=== PATIENT | male | born 1985 | race Asian ===

== ENCOUNTER 2025-07-05 10:26 | Observation (INO) ==
--- NOTE | 2025-07-05 11:07 | ED Physician Documentation ---
History of Present Illness Stated complaint Stated Complaint: SOA, ELEVATED HR Chief complaint Chief Complaint: Cardiac History obtained from History obtained from: Patient Additonal information Additional information: 40-year-old gentleman with history of childhood asthma does smoke cigarettes presents referred in from the walk-in clinic for evaluation of shortness of breath and elevated heart rate. Has been going on for about 3 days. He gets dizzy when he stands up too fast and feels like his heart rate is elevated. There is no chest pain with it. No recent travel. When queried about leg symptoms he did recently have pain at the top of the right foot and left ankle without trauma that is better now. There is no cough. Meds/Allgy Home Medications Ambulatory Orders Medication Instructions Recorded Confirmed diphenhydramine HCl 25 mg capsule 25 mg PO TID PRN all ergic reaction 04/24/25 07/05/25 (Benadryl) naproxen sodium 220 mg capsule 220 mg PO BID PRN pain 04/24/25 07/05/25 Allergies Allergies Allergy/AdvReac Type Severity Reaction Status Date / Time No Known Drug Allergies Allergy Verified 07/05/25 11:00 PFSH Active Problems All Active Problems (Updated 07/05/25 @ 11:39 by Bismark Reyes MD) Dyspnea (Acute) Profound anemia (Chronic) Tachycardia (Acute) Social History Social History (Updated 04/24/25 @ 08:08 by Domingo Acharya) Smoking Status: Current every day smoker Do you feel safe in your home environment?: Yes History of physical, verbal, emotional, or financial abuse?: No Exam Exam Vital Signs: Vital Signs x48h Temp Pulse Pulse Resp BP BP BP 07/05/25 14:05 37.3 C 102 H 18 121/69 07/05/25 13:18 103 H 152/72 H 07/05/25 11:31 90 18 07/05/25 11:04 103 H 163/107 H 07/05/25 11:02 163/76 H 07/05/25 10:56 36.7 C 104 H 22 163/76 H Pulse Ox 07/05/25 14:05 100 07/05/25 13:18 98 07/05/25 11:31 07/05/25 11:04 100 07/05/25 11:02 07/05/25 10:56 100 Constitutional normal general appearance and no apparent distress HENMT oropharynx normal Eyes PERRL Respiratory breath sounds equal bilaterally Mild expiratory wheezes, nonlabored Cardiovascular normal heart rate noted, regular rhythm noted, no rub and no murmur Gastrointestinal abdomen soft to palpation and nontender to palpation Extremities No pedal edema or calf tenderness. Neurology GCS 15 Results Vitals Vitals: Vital Signs - 24 hr 07/05/25 10:56 07/05/25 11:02 07/05/25 11:04 Temperature 36.7 C Temperature Source Temporal Artery Scan Pulse Rate 104 H 103 H Pulse Rate [Monitoring electrodes] Respiratory Rate 22 Blood Pressure 163/76 H 163/107 H Blood Pressure [Left Brachial artery] Blood Pressure [Left] 163/76 H O2 Saturation 100 100 O2 Source Room air Room air Sedation scale Pain Intensity 0 07/05/25 11:31 07/05/25 13:18 07/05/25 14:05 Temperature 37.3 C Temperature Source Temporal Artery Scan Pulse Rate 90 103 H Pulse Rate [Monitoring electrodes] 102 H Respiratory Rate 18 18 Blood Pressure 152/72 H Blood Pressure [Left Brachial artery] 121/69 Blood Pressure [Left] O2 Saturation 98 100 O2 Source Room air Room air Sedation scale 0-Fully awake Pain Intensity 0 Oxygen O2 Source Room air EKG (time done) 1110: EKG releavant findings:: EKG personally interpreted by author of this note. Relevant findings are: Normal sinus rhythm with rate of 90, short PA interval, early R wave transition. No clear ischemic findings. Labs Labs: Laboratory Tests 07/05/25 07/05/25 07/05/25 11:10 11:10 11:10 WBC 4.4 L RBC 2.68 L Hgb 4.4 L* Hct 18.5 L* MCV 69.0 L MCH 16.4 L MCHC 23.8 L RDW 18.6 H Plt Count 347 MPV 10.2 Neut # (Auto) 2.6 Lymph # (Auto) 1.2 L Hanson # (Auto) 0.5 Eos # (Auto) 0.1 Baso # (Auto) 0.0 Absolute Nucleated RBC 0.07 Nucleated RBC % 1.6 Manual Slide Review Indicated WBC Morphology NORMAL APPEARANCE Platelet Estimate NORMAL (130-450,000) Platelet Morphology NORMAL APPEARANCE RBC Morph Micro Appear 4+ ANISOCYTOSIS 4+ POIKILOCYTOSIS 3+ POLYCHROMASIA D-Dimer Sodium Potassium Chloride Carbon Dioxide Anion Gap BUN Creatinine Estimated GFR (MDRD) Glucose Calcium Iron TIBC % Saturation Transferrin Total Bilirubin AST ALT Alkaline Phosphatase Troponin I High Sens Total Protein Albumin Globulin Albumin/Globulin Ratio Lipase Slides for Path Review Blood Type Blood Type Recheck Antibody Screen GINA, IgG Specific GINA, Polyspecific GINA, C3d Specific Crossmatch IS Only 07/05/25 07/05/25 07/05/25 11:10 11:10 11:43 WBC RBC Hgb Hct MCV MCH MCHC RDW Plt Count MPV Neut # (Auto) Lymph # (Auto) Hanson # (Auto) Eos # (Auto) Baso # (Auto) Absolute Nucleated RBC Nucleated RBC % Manual Slide Review WBC Morphology Platelet Estimate Platelet Morphology RBC Morph Micro Appear 1+ SCHISTOCYTES 1+ TEARDROP CELLS D-Dimer 205.3 Sodium 138 Potassium 3.8 Chloride 107 Carbon Dioxide 23 Anion Gap 8.0 BUN 11 Creatinine 1.0 Estimated GFR (MDRD) 84 L Glucose 108 H Calcium 8.6 Iron 14 L TIBC 595 H % Saturation 2 L Transferrin 425 H Total Bilirubin 0.5 AST 13 ALT 12 Alkaline Phosphatase 48 Troponin I High Sens 3.4 Total Protein 6.4 Albumin 4.1 Globulin 2.3 Albumin/Globulin Ratio 1.8 Lipase 25 Slides for Path Review Indicated Blood Type Blood Type Recheck O POSITIVE Antibody Screen GINA, IgG Specific GINA, Polyspecific GINA, C3d Specific Crossmatch IS Only 07/05/25 12:10 WBC RBC Hgb Hct MCV MCH MCHC RDW Plt Count MPV Neut # (Auto) Lymph # (Auto) Hanson # (Auto) Eos # (Auto) Baso # (Auto) Absolute Nucleated RBC Nucleated RBC % Manual Slide Review WBC Morphology Platelet Estimate Platelet Morphology RBC Morph Micro Appear D-Dimer Sodium Potassium Chloride Carbon Dioxide Anion Gap BUN Creatinine Estimated GFR (MDRD) Glucose Calcium Iron TIBC % Saturation Transferrin Total Bilirubin AST ALT Alkaline Phosphatase Troponin I High Sens Total Protein Albumin Globulin Albumin/Globulin Ratio Lipase Slides for Path Review Blood Type O POSITIVE Blood Type Recheck Antibody Screen NEGATIVE GINA, IgG Specific Not Reportable GINA, Polyspecific NEGATIVE GINA, C3d Specific Not Reportable Crossmatch IS Only See Detail PD Medical Decision Making ED course ED course: 32-year-old gentleman presents with shortness of breath and dizziness. There is no chest pain. He was tachycardic in the clinic but that seems to resolve on arrival here.. He was sent in from the clinic for workup. He had a trace of a wheeze so I did trial albuterol which was unhelpful. Subsequently labs came back with profound anemia. No priors available for comparison. He states that he had ongoing rectal bleeding for a year and bleeds about every other day. He is never had a workup on this. No dark or tarry stools. His mother at the bedside also notes that she has a history of profound iron deficiency anemia and has required transfusions in the past. He was crossmatched for 3 units of blood anticipate at least 2 and likely 3 unit need to given his size. Iron studies suggest significant iron deficiency anemia and this is likely due to his chronic GI bleed. There was a delay to admission as no beds were available until staffing was better on the floor and I spoke with Dr. Roy for admission at 2:10 PM. She requested I have a surgical consult and I spoke with Dr. Gomes. Note that OR is not open this weekend, but given that he has had ongoing bleeding for a year there is probably no urgency to the colonoscopy and she deferred to medicine on the decision to admit and Dr. Dmitri Hook was agreeable. Discharge Plan Discharge Patient Disposition: ED Place in Observation Condition: Fair Clinical Impression: Profound anemia, Dyspnea Prescriptions: No Action diphenhydramine HCl [Benadryl] 25 mg capsule 25 mg PO TID PRN (Reason: allergic reaction) naproxen sodium 220 mg capsule 220 mg PO BID PRN (Reason: pain) Print Language: Marshallese Stand Alone Forms: PCP List
--- NOTE | 2025-07-05 11:19 | XRAY Report ---
PROCEDURE: XR Chest 1V INDICATIONS: Chest pain TECHNIQUE: One view of the chest was acquired. COMPARISON: None. FINDINGS: Surgical changes and devices: None. Lungs and pleura: No pleural effusions or pneumothorax. No consolidation. Mediastinum: Mediastinal contours appear normal. Heart size is normal. Bones and chest wall: No suspicious bony lesions. Overlying soft tissues appear unremarkable. IMPRESSION: No acute cardiopulmonary process. Reviewed by: Camryn Horowitz MD on 07/05/2025 11:16 AM [facility] Approved by: Camryn Horowitz MD on 07/05/2025 11:16 AM [facility] Station ID: [id number]
[2025-07-05 11:20] LABS: MEAN PLATELET VOLUME 10.2 fL (7.4-11.4); NRBC ABSOLUTE COUNT (AUTO) 0.07 x10^3/uL; NUCLEATED RED BLOOD CELLS AUTO 1.6 /100WBC; PLT - PLATELET COUNT 347 10^3/uL (130-450); RED CELL DISTRIBUTION WIDTH 18.6 % (12.0-15.0)
[2025-07-05] MEDS: ALBUTEROL NEB 2.5 MG/3 ML INH STA (11:25)
[2025-07-05 11:30] LABS: HCT - HEMATOCRIT 18.5 % (42.0-52.0); HGB - HEMOGLOBIN 4.4 g/dL (14.0-18.0); SLIDE REVIEW? Indicated
[2025-07-05 11:33] LABS: ALT ALANINE AMINOTRANSFERASE 12.0 IU/L (10-60); AST ASPARTATE AMINOTRANSFERASE 13.0 IU/L (10-42); BUN - BLOOD UREA NITROGEN 11.0 mg/dL (6-20); CARBON DIOXIDE - CO2 23.0 mmol/L (21-32); CREATININE 1.0 mg/dL (0.6-1.3); GFR - MDRD 84.0 (>89)
[2025-07-05 11:38] LABS: TROPONIN I HIGH SENSITIVITY 3.4 ng/L (2.3-19.7)
[2025-07-05 12:14] LABS: PLATELET ESTIMATE, MANUAL NORMAL (130-450,000) (NORMAL); PLATELET MORPHOLOGY NORMAL APPEARANCE (NORMAL); SLIDE SENT FOR PATH REVIEW? Indicated
[2025-07-05 12:15] LABS: WBC MORPHOLOGY (MULTIPLE) NORMAL APPEARANCE (NORMAL)
[2025-07-05] MEDS: SODIUM CHLORIDE 0.9% 1,000 ML IV STA (12:15)
[2025-07-05 12:47] LABS: % IRON SATURATION 2 % (20-50)
--- NOTE | 2025-07-05 14:13 | HISTORY & PHYSICAL EXAMINATION ---
Chief Complaint Chief Complaint Chief Complaint: Dyspnea, weakness, tachycardia, fatigue, anemia, BRBPR CPT Codes:: 15432 History of Present Illness History Obtained From Records Reviewed: ED History obtained from: ED, patient at bedside Exam Limitations: None History of Present Illness HPI Comment/Other: Pt is a 40yoM with ~1 yr of minor BRBPR and ongoing symptoms for ~3 days of dyspnea with activity, weakness, fatigue, and feeling "unmotivated". He was seen at the walk-in clinic and was sent to the ER. He had an episode of BRBPR some 10 years ago and had received a colonoscopy at that time, which apparently proved inconclusive for bleeding source or discrete pathology. Given the lack of definitive diagnosis at that time, pt assumed this ongoing bleeding was likewise going to prove inconclusive if he sought treatment, and [place]. He relates he may be pre-diabetic and that he has recently tried to start eating better and cutting out extraneous sugar, but does obtain blood sugars and has not had an A1C that he knows of. He denies any recent illness, international travel, new foods, or other precipitating events, but does relate that some illnesses do run in the family, including a nonspecific colon cancer hx in a family member. Will clarify degree of relation. Other FH includes diabetes in uncles and father, heart disease in grandparent, lung cancer in a maternal great grandmother, and iron deficiency anemia from uterine fibroid bleeding which was corrected with transfusion. Pt does relate he had had a "hives" reaction within the last 2 weeks, and another some months ago that did not return after he changed detergents. Pt has a long smoking history and has been working in [employer] for some years now. He does relate some near syncopal events, but has not experienced true syncope. Pt denies any chest pain, respiratory distress at rest, nausea/vomiting, syncope, NAVA, fever, chills/rigor, dysuria, hematuria. Meds/Allgy Home Medications Ambulatory Orders Medication Instructions Recorded Confirmed diphenhydramine HCl 25 mg capsule 25 mg PO TID PRN all ergic reaction 04/24/25 07/05/25 (Benadryl) naproxen sodium 220 mg capsule 220 mg PO BID PRN pain 04/24/25 07/05/25 Allergies Allergies Allergy/AdvReac Type Severity Reaction Status Date / Time No Known Drug Allergies Allergy Verified 07/05/25 11:00 PFSH Active Problems All Active Problems (Updated 07/05/25 @ 15:39 by Twin Delaney) BRBPR (bright red blood per rectum) (Acute) Asthma (Chronic) Dyspnea (Acute) Profound anemia (Chronic) Tachycardia (Acute) Social History Social History (Updated 04/24/25 @ 08:08 by Domingo Acharya) Smoking Status: Current every day smoker Do you feel safe in your home environment?: Yes History of physical, verbal, emotional, or financial abuse?: No POLST Patient has POLST: No POLST CPR Status: Attempt Resuscitation (CPR) Level of Medical Intervention: Full Treatment Review of Systems As above. Constitutional Reports: Fatigue and Weakness Eyes Reports: Blurry vision Cardiovascular Reports: shortness of breath with exertion and Decreased exercise tolerance; Denies: Irregular heart rate, chest pain or palpitations Respiratory Reports: Shortness of breath and SOB with exertion Gastrointestinal Reports: Rectal bleeding; Denies: Abdominal pain, Abdominal distention, Vomiting, René blood emesis, Coffee grounds in vomit, Diarrhea or Constipation Genitourinary Denies: Painful urination or Flank pain Neurological Reports: General weakness Endocrine Reports: Fatigue Hematologic/Lymphatic Reports: Anemia Allergic/Immunologic Reports: Hives Prior Level of Functionality: Pt was able to go to the gym several times per week prior to these more acute symptoms, and was able to tolerate exercise at baseline. Exam Exam Vital Signs: Vital Signs x48h Temp Pulse Pulse Resp BP BP BP 07/05/25 15:39 36.6 C 95 18 109/66 07/05/25 14:27 37.2 C 96 16 135/64 H 07/05/25 14:05 37.3 C 102 H 18 121/69 07/05/25 13:18 103 H 152/72 H 07/05/25 11:31 90 18 07/05/25 11:04 103 H 163/107 H 07/05/25 11:02 163/76 H 07/05/25 10:56 36.7 C 104 H 22 163/76 H Pulse Ox 07/05/25 15:39 100 07/05/25 14:27 100 07/05/25 14:05 100 07/05/25 13:18 98 07/05/25 11:31 07/05/25 11:04 100 07/05/25 11:02 07/05/25 10:56 100 Constitutional normal general appearance and alert Pt slightly pale HENMT normocephalic and oral mucous membranes normal (Oral membranes pale) Eyes PERRL Chest inspection of chest normal Respiratory breath sounds equal bilaterally, normal respiratory effort and clear to auscultation bilaterally Cardiovascular normal heart rate noted, no gallop, no rub and no murmur Gastrointestinal abdomen normal to inspection, abdomen soft to palpation, nontender to palpation and nondistended Genitourinary no CVA tenderness and bladder normal to palpation Extremities normal to inspection Conclusion/Plan Problem List (1) Profound anemia: Plan: Hospital Day 1 -Condition: Pt presented with classic constellation of symptoms for a profound anemia, likely due to ongoing GI bleed. In ER, pt was found to have a microcytic, hypochromic, high RDW anemia, with Hgb of 4.4, RBC of 2.68, Hct 18.5. Pt was started on 2 units of LR PRBC and reflex haptoglobin ordered to monitor hemolysis or transfusion reaxn. Plan to monitor repeat CBC and normalize H&H; if Hgb is still <7 after 2nd transfusion, will tranfuse an additional unit. Will have 2x large bore IVs and resuscitate with 100ml/hr of LR in addition to blood products. Iron studies reveal Low serum iron (14), high TIBC (595) low saturation (2%), and high transferrin, (425). LDH, haptoglobin, and Bilirubin, Clarita/indirect Clarita all ordered. LDH, bili, and Clarita/indirect Clarita all normal at this stage, haptoglobin has yet to result. -Assistance: Blood transfusion, CBC monitoring, electrolyte monitoring, iron supplementation, surgical consult, diagnostic imaging. -Risk: Further bleeding, more profound anemia, . -Monitor: Monitor above factors (CBC, H/H, electrolytes -Evaluate: Evaluate for clinical response to normalizing hemoglobin and iron supplementation. -Assess/add: Can assess further for any hemolytic or coagulopathic conditions as indicated. -Treat: LR PRBCs, oral ferrous sulfate. Qualifiers: Anemia type: iron deficiency Iron deficiency anemia type: chronic blood loss Qualified Code(s): D50.0 - Iron deficiency anemia secondary to blood loss (chronic) (2) BRBPR (bright red blood per rectum): Plan: Pt presents with BRBPR ongoing for approx 1 year. Pt denies any melenic quality, and does not know if he has any history of hemorrhoids, anal fissures, polyposis, Crohn's disease, UC, or any other GI disease prior to this. His colonoscopy x10 years ago had been inconclusive for discrete pathology, will ascertain if we can access records from this event. -Colonoscopy is indicated at this time to determine cause of bleeding. If stabilized with transfusions, can complete as an outpatient. -In lieu of colonoscopy in the acute phase, we can consider a CTA abd/pelvis to determine if there is a more acute need to localize bleed. -Will further assess any need for ongoing diagnostic imaging or surgical intervention and work to further stabilize H/H. -Will [place] back to further assessing a family component to colon cancer, although cell findings will likely guide treatment from the scope regardless. -Monitor: Continue to assess for improved clinical s/s of anemia, or progressing to rené shock. -Evaluate: Reassess response as infusions complete. -Assess/add: Serial CBC/CMP. Additional labs as indicated. -Treat: Infusion and iron repletion as above. (3) Tachycardia: Plan: -Initially presented with tachycardia in ER from 129-102, suspected to be of anemia etiology, since has normalized with start of transfusion, and LR has been ordered at a rate of 100mls/hr. -Continue to monitor for s/s of decreased perfusion and any progression to rené shock. (4) Dyspnea: Plan: Pt had reported dyspnea on exertion worsening over the last several days, suspected as part of the constellation of anemia symptoms above. Pt has denied any SOB, and no increased WOB, decreased RA sats, adventitious lung sounds, or dyspnea at rest has been noted, and pt has had a clear CXR. Pt does have history of asthma, but no current s/s thereof. Qualifiers: Dyspnea type: dyspnea on exertion Qualified Code(s): R06.09 - Other forms of dyspnea Lab Results Lab results reviewed: Yes 07/05/25 11:10 07/05/25 11:10
[2025-07-05] MEDS ORDERED: ONDANSETRON ODT 4 MG TABLET TL PRN (15:11)
[2025-07-05] MEDS ORDERED: SODIUM CHLORIDE FLUSH 0.9% 10 ML SYRINGE IVP PRN (15:11)
[2025-07-05] MEDS ORDERED: ONDANSETRON 4 MG/2 ML VIAL IVP PRN (15:11)
[2025-07-05] MEDS ORDERED: ACETAMINOPHEN 325 MG TABLET PO PRN (15:11)
--- NOTE | 2025-07-05 15:38 | PHARMACY PROGRESS NOTE ---
Best Possible Medication History Admit Date and Time: 07/05/25 [id number] Home Medications Medication Instructions Recorded Confirmed Type diphenhydramine HCl 25 mg capsule 25 mg PO TID PRN all ergic reaction 04/24/25 07/05/25 History (Benadryl) naproxen sodium 220 mg capsule 220 mg PO BID PRN pain 04/24/25 07/05/25 History Processed by: Nursing Medications reviewed in ED?: Yes Medication History completed: Yes Patient Interview: Pt interview ONLY source BPM Statement: As the person ultimately responsible for medication therapy, providers are able to order a medication from an existing home medication list in [facility] via the "Reconcile Routine" prior to Confirmation of that medication by ground crewman aircraft support. Such practice is discouraged except when the physician, in their clinical judgment, deems that a medical need exists for a medication without regard to previous use.
[2025-07-05] MEDS: SODIUM CHLORIDE FLUSH 0.9% 10 ML SYRINGE IVP SCH (16:52)
[2025-07-05] MEDS: LACTATED RINGERS 1,000 ML IV SCH (19:21)
[2025-07-05 20:11] LABS: HCT - HEMATOCRIT 22.3 % (42.0-52.0)
[2025-07-05 20:20] LABS: HGB - HEMOGLOBIN 6.2 g/dL (14.0-18.0)
[2025-07-06 05:09] LABS: HCT - HEMATOCRIT 23.4 % (42.0-52.0); MEAN PLATELET VOLUME 10.3 fL (7.4-11.4); NRBC ABSOLUTE COUNT (AUTO) 0.08 x10^3/uL; NUCLEATED RED BLOOD CELLS AUTO 2.0 /100WBC; PLT - PLATELET COUNT 294 10^3/uL (130-450); RED CELL DISTRIBUTION WIDTH 21.2 % (12.0-15.0)
[2025-07-06 05:14] LABS: HGB - HEMOGLOBIN 6.7 g/dL (14.0-18.0); SLIDE REVIEW? Indicated
[2025-07-06 05:25] LABS: BUN - BLOOD UREA NITROGEN 6.0 mg/dL (6-20); CARBON DIOXIDE - CO2 23.0 mmol/L (21-32); CREATININE 0.8 mg/dL (0.6-1.3); GFR - MDRD 108.0 (>89)
[2025-07-06 06:23] LABS: PLATELET ESTIMATE, MANUAL NORMAL (130-450,000) (NORMAL); PLATELET MORPHOLOGY NORMAL APPEARANCE (NORMAL); WBC MORPHOLOGY (MULTIPLE) NORMAL APPEARANCE (NORMAL)
--- NOTE | 2025-07-06 07:48 | PROVIDER PROGRESS NOTE ---
Subjective Prog Note Date Prog Note Date: 07/06/25 Prog Note Time: 09:17 Subjective Pt reports feeling: Improved Subjective: Pt reports feeling improved from yesterday and feels that his tachycrdia and dyspnea when he walks and moves around is improved. Pt reports a fair amount of stress in the dynamics of family members who have related that they desire him to be transferred to care at a different facility, feeling that we "aren't doing enough." He relates some frustration with this dynamic, relating that he feels as though his opinions, namely centering around staying with his planned workup here, are not being considered by the family. The pt's mother shares some of these frustrations, and relates that several of the family are health care workers of different disciplines, and they are used to some degree of medicine. Pt informed of his continual right to cease care here if the decision is made. Current Medications Current Medications Current Medications: Current Medications Generic Name Dose Route Start Last Admin Trade Name Freq PRN Reason Stop Dose Admin Acetaminophen 650 mg 07/05/25 15:11 Acetaminophen 325 Mg Tablet PO Q4HR PRN Pain 1 to 4, or Fever Lactated Ringer's 1,000 mls @ 100 mls/hr 07/05/25 15:11 07/06/25 07:48 Lr IV Not Given .Q10H RUBENS Ondansetron HCl 4 mg 07/05/25 15:11 Ondansetron Odt 4 Mg Tablet TL Q6HR PRN Nausea / Vomiting Ondansetron HCl 4 mg 07/05/25 15:11 Ondansetron 4 Mg/2 Ml Vial IVP Q6HR PRN Nausea / Vomiting Sodium Chloride 10 ml 07/05/25 15:11 Sodium Chloride Flush 0.9% 10 Ml Syringe IVP PRN PRN NEEDED PER PROVIDER ORDERS Sodium Chloride 10 ml 07/05/25 17:00 07/05/25 23:46 Sodium Chloride Flush 0.9% 10 Ml Syringe IVP Not Given 0100,0900,1700 [facility] Objective Vital Signs/Intake & Output Reviewed Vital Signs: Yes Vital Signs: Vital Signs x48h Temp Pulse Resp BP Pulse Ox 07/06/25 04:41 36.8 C 84 16 117/69 99 07/06/25 00:02 36.7 C 82 18 108/66 99 07/06/25 00:02 36.7 C 82 18 108/66 98 Intake & Output: Intake & Output 07/03/25 07/04/25 07/05/25 07/06/25 23:59 23:59 23:59 23:59 Intake Total 2400 / 2400 1960 / 1960 Output Total 450 / 450 Balance 2400 / 2400 1510 / 1510 Weight (kg) 108.5 kg Objective General Appearance: positive No acute distress and Alert Eyes Bilateral: positive Normal inspection Neck: positive Nml inspection Respiratory: positive Chest non-tender, No respiratory distress and Breath sounds nml Cardiovascular: positive Regular rate & rhythm and No murmur Abdomen: positive Non-tender, Nml bowel sounds and No distention Skin: positive Color nml, Warm and Dry Extremities: positive Non-tender and No pedal edema Neurologic/Psychiatric: positive Oriented x3 Lab Results 07/06/25 13:10 07/06/25 04:44 Other Labs: Lab Results x24hrs 07/06/25 07/06/25 07/06/25 Range/Units 04:44 04:44 04:44 WBC (4.8-10.8) x10^3/uL RBC (4.70-6.10) 10^6/uL Hgb (14.0-18.0) g/dL Hct (42.0-52.0) % MCV (80.0-94.0) fL MCH (27.0-31.0) pg MCHC (32.0-36.0) g/dL RDW (12.0-15.0) % Plt Count (130-450) 10^3/uL MPV (7.4-11.4) fL Neut # (Auto) (1.5-6.6) 10^3/uL Lymph # (Auto) (1.5-3.5) 10^3/uL Bay # (Auto) (0.0-1.0) 10^3/uL Eos # (Auto) (0.0-0.7) 10^3/uL Baso # (Auto) (0.0-0.1) 10^3/uL Absolute Nucleated RBC x10^3/uL Nucleated RBC % /100WBC Manual Slide Review WBC Morphology (NORMAL) Platelet Estimate (NORMAL) Platelet Morphology (NORMAL) RBC Morph Micro Appear DIMORPHIC RBCS 1+ POLYCHROMASIA 3+ HYPOCHROMASIA (NORMAL) Haptoglobin (17-317) mg/dL D-Dimer (200.0-255.0) ng/mL Sodium 139 (135-145) mmol/L Potassium 4.0 (3.5-4.5) mmol/L Chloride 110 (101-111) mmol/L Carbon Dioxide 23 (21-32) mmol/L Anion Gap 6.0 (6-13) BUN 6 (6-20) mg/dL Creatinine 0.8 (0.6-1.3) mg/dL Estimated GFR (MDRD) 108 (>89) Glucose 103 (74-104) mg/dL Calcium 8.5 (8.5-10.3) mg/dL Iron (50-212) ug/dL TIBC (250-450) ug/dL % Saturation (20-50) % Transferrin (203-362) mg/dL Total Bilirubin (0.2-1.0) mg/dL AST (10-42) IU/L ALT (10-60) IU/L Alkaline Phosphatase (42-121) IU/L Lactate Dehydrogenase (140-271) IU/L Troponin I High Sens (2.3-19.7) ng/L Total Protein (6.4-8.9) g/dL Albumin (3.2-5.5) g/dL Globulin (2.1-4.2) g/dL Albumin/Globulin Ratio (1.0-2.2) Lipase (11-82) U/L Slides for Path Review Blood Type Blood Type Recheck Antibody Screen GINA, IgG Specific GINA, Polyspecific GINA, C3d Specific Crossmatch IS Only 07/06/25 07/05/25 07/05/25 Range/Units 04:44 20:05 12:10 WBC 4.0 L (4.8-10.8) x10^3/uL RBC 3.21 L (4.70-6.10) 10^6/uL Hgb 6.7 L* 6.2 L* (14.0-18.0) g/dL Hct 23.4 L 22.3 L (42.0-52.0) % MCV 72.9 L (80.0-94.0) fL MCH 20.9 L (27.0-31.0) pg MCHC 28.6 L (32.0-36.0) g/dL RDW 21.2 H (12.0-15.0) % Plt Count 294 (130-450) 10^3/uL MPV 10.3 (7.4-11.4) fL Neut # (Auto) 2.3 (1.5-6.6) 10^3/uL Lymph # (Auto) 1.1 L (1.5-3.5) 10^3/uL Bay # (Auto) 0.5 (0.0-1.0) 10^3/uL Eos # (Auto) 0.1 (0.0-0.7) 10^3/uL Baso # (Auto) 0.0 (0.0-0.1) 10^3/uL Absolute Nucleated RBC 0.08 x10^3/uL Nucleated RBC % 2.0 /100WBC Manual Slide Review Indicated WBC Morphology NORMAL APPEARANCE (NORMAL) Platelet Estimate NORMAL (130-450,000) (NORMAL) Platelet Morphology NORMAL APPEARANCE (NORMAL) RBC Morph Micro Appear 3+ ANISOCYTOSIS (NORMAL) Haptoglobin (17-317) mg/dL D-Dimer (200.0-255.0) ng/mL Sodium (135-145) mmol/L Potassium (3.5-4.5) mmol/L Chloride (101-111) mmol/L Carbon Dioxide (21-32) mmol/L Anion Gap (6-13) BUN (6-20) mg/dL Creatinine (0.6-1.3) mg/dL Estimated GFR (MDRD) (>89) Glucose (74-104) mg/dL Calcium (8.5-10.3) mg/dL Iron (50-212) ug/dL TIBC (250-450) ug/dL % Saturation (20-50) % Transferrin (203-362) mg/dL Total Bilirubin (0.2-1.0) mg/dL AST (10-42) IU/L ALT (10-60) IU/L Alkaline Phosphatase (42-121) IU/L Lactate Dehydrogenase (140-271) IU/L Troponin I High Sens (2.3-19.7) ng/L Total Protein (6.4-8.9) g/dL Albumin (3.2-5.5) g/dL Globulin (2.1-4.2) g/dL Albumin/Globulin Ratio (1.0-2.2) Lipase (11-82) U/L Slides for Path Review Blood Type O POSITIVE Blood Type Recheck Antibody Screen NEGATIVE GINA, IgG Specific Not Reportable GINA, Polyspecific NEGATIVE GINA, C3d Specific Not Reportable Crossmatch IS Only See Detail 07/05/25 07/05/25 07/05/25 Range/Units 11:43 11:10 11:10 WBC (4.8-10.8) x10^3/uL RBC (4.70-6.10) 10^6/uL Hgb (14.0-18.0) g/dL Hct (42.0-52.0) % MCV (80.0-94.0) fL MCH (27.0-31.0) pg MCHC (32.0-36.0) g/dL RDW (12.0-15.0) % Plt Count (130-450) 10^3/uL MPV (7.4-11.4) fL Neut # (Auto) (1.5-6.6) 10^3/uL Lymph # (Auto) (1.5-3.5) 10^3/uL Bay # (Auto) (0.0-1.0) 10^3/uL Eos # (Auto) (0.0-0.7) 10^3/uL Baso # (Auto) (0.0-0.1) 10^3/uL Absolute Nucleated RBC x10^3/uL Nucleated RBC % /100WBC Manual Slide Review WBC Morphology (NORMAL) Platelet Estimate (NORMAL) Platelet Morphology (NORMAL) RBC Morph Micro Appear 1+ TEARDROP CELLS 1+ SCHISTOCYTES (NORMAL) Haptoglobin 79 (17-317) mg/dL D-Dimer 205.3 (200.0-255.0) ng/mL Sodium 138 (135-145) mmol/L Potassium 3.8 (3.5-4.5) mmol/L Chloride 107 (101-111) mmol/L Carbon Dioxide 23 (21-32) mmol/L Anion Gap 8.0 (6-13) BUN 11 (6-20) mg/dL Creatinine 1.0 (0.6-1.3) mg/dL Estimated GFR (MDRD) 84 L (>89) Glucose 108 H (74-104) mg/dL Calcium 8.6 (8.5-10.3) mg/dL Iron 14 L (50-212) ug/dL TIBC 595 H (250-450) ug/dL % Saturation 2 L (20-50) % Transferrin 425 H (203-362) mg/dL Total Bilirubin 0.5 (0.2-1.0) mg/dL AST 13 (10-42) IU/L ALT 12 (10-60) IU/L Alkaline Phosphatase 48 (42-121) IU/L Lactate Dehydrogenase 124 L (140-271) IU/L Troponin I High Sens 3.4 (2.3-19.7) ng/L Total Protein 6.4 (6.4-8.9) g/dL Albumin 4.1 (3.2-5.5) g/dL Globulin 2.3 (2.1-4.2) g/dL Albumin/Globulin Ratio 1.8 (1.0-2.2) Lipase 25 (11-82) U/L Slides for Path Review Indicated Blood Type Blood Type Recheck O POSITIVE Antibody Screen GINA, IgG Specific GINA, Polyspecific GINA, C3d Specific Crossmatch IS Only 07/05/25 07/05/25 07/05/25 Range/Units 11:10 11:10 11:10 WBC 4.4 L (4.8-10.8) x10^3/uL RBC 2.68 L (4.70-6.10) 10^6/uL Hgb 4.4 L* (14.0-18.0) g/dL Hct 18.5 L* (42.0-52.0) % MCV 69.0 L (80.0-94.0) fL MCH 16.4 L (27.0-31.0) pg MCHC 23.8 L (32.0-36.0) g/dL RDW 18.6 H (12.0-15.0) % Plt Count 347 (130-450) 10^3/uL MPV 10.2 (7.4-11.4) fL Neut # (Auto) 2.6 (1.5-6.6) 10^3/uL Lymph # (Auto) 1.2 L (1.5-3.5) 10^3/uL Bay # (Auto) 0.5 (0.0-1.0) 10^3/uL Eos # (Auto) 0.1 (0.0-0.7) 10^3/uL Baso # (Auto) 0.0 (0.0-0.1) 10^3/uL Absolute Nucleated RBC 0.07 x10^3/uL Nucleated RBC % 1.6 /100WBC Manual Slide Review Indicated WBC Morphology NORMAL APPEARANCE (NORMAL) Platelet Estimate NORMAL (130-450,000) (NORMAL) Platelet Morphology NORMAL APPEARANCE (NORMAL) RBC Morph Micro Appear 3+ POLYCHROMASIA 4+ POIKILOCYTOSIS 4+ ANISOCYTOSIS (NORMAL) Haptoglobin (17-317) mg/dL D-Dimer (200.0-255.0) ng/mL Sodium (135-145) mmol/L Potassium (3.5-4.5) mmol/L Chloride (101-111) mmol/L Carbon Dioxide (21-32) mmol/L Anion Gap (6-13) BUN (6-20) mg/dL Creatinine (0.6-1.3) mg/dL Estimated GFR (MDRD) (>89) Glucose (74-104) mg/dL Calcium (8.5-10.3) mg/dL Iron (50-212) ug/dL TIBC (250-450) ug/dL % Saturation (20-50) % Transferrin (203-362) mg/dL Total Bilirubin (0.2-1.0) mg/dL AST (10-42) IU/L ALT (10-60) IU/L Alkaline Phosphatase (42-121) IU/L Lactate Dehydrogenase (140-271) IU/L Troponin I High Sens (2.3-19.7) ng/L Total Protein (6.4-8.9) g/dL Albumin (3.2-5.5) g/dL Globulin (2.1-4.2) g/dL Albumin/Globulin Ratio (1.0-2.2) Lipase (11-82) U/L Slides for Path Review Blood Type Blood Type Recheck Antibody Screen GINA, IgG Specific GINA, Polyspecific GINA, C3d Specific Crossmatch IS Only Diagnostic Imaging Diagnostic Imaging Results: positive Final report reviewed and Read independently Assessment/Plan Problem List (1) Profound anemia: Impression: -Condition: Pt presented with classic constellation of symptoms for a profound anemia, likely due to ongoing GI bleed. In ER, pt was found to have a microcytic, hypochromic, high RDW anemia, with Hgb of 4.4, RBC of 2.68, Hct 18.5. Plan to monitor repeat CBC and normalize H&H; Hgb is still <7 (6.7) after 3rd transfusion, will tranfuse an additional unit this morning. Will have 2x large bore IVs and resuscitate with 100ml/hr of LR in addition to blood products. Iron studies reveal Low serum iron (14), high TIBC (595) low saturation (2%), and high transferrin, (425). LDH, haptoglobin, and Bilirubin, Clarita/indirect Clarita all all normal. Qualifiers: Anemia type: iron deficiency Iron deficiency anemia type: chronic blood loss Qualified Code(s): D50.0 - Iron deficiency anemia secondary to blood loss (chronic) (2) BRBPR (bright red blood per rectum): Impression: Pt presents with BRBPR ongoing for approx 1 year. Pt denies any melenic quality, and does not know if he has any history of hemorrhoids, anal fissures, polyposis, Crohn's disease, UC, or any other GI disease prior to this. His colonoscopy x10 years ago had been inconclusive for discrete pathology, will ascertain if we can access records from this event. -Colonoscopy is indicated at this time to determine cause of bleeding. In lieu of colonoscopy in the acute phase, due to pt complaint of increased bleeding at during the night/morning, we have ordered a CTA to r/o new or worsening bleeding. Results pending. -Will further assess any need for ongoing diagnostic imaging or surgical intervention and work to further stabilize H/H. -Running a 3rd unit of LR PRBC today due to continued Hgb <7 (6.7) -Will [place] back to further assessing a family component to colon cancer, although cell findings will likely guide treatment from the scope regardless. -Will speak with family today and address concerns about course of treatment (3) Tachycardia: Impression: -Initially presented with tachycardia in ER from 129-102, suspected to be of anemia etiology, since has normalized with start of transfusion, and LR has been ordered at a rate of 100mls/hr. -Continue to monitor for s/s of decreased perfusion and any progression to rené shock. (4) Dyspnea: Impression: Pt had reported dyspnea on exertion worsening over the last several days, suspected as part of the constellation of anemia symptoms above. Pt continues to deny any current SOA, and no increased WOB, decreased RA sats, adventitious lung sounds, or dyspnea at rest has been noted, and pt has had a clear CXR. Pt does have history of asthma, but no current s/s thereof. Qualifiers: Dyspnea type: dyspnea on exertion Qualified Code(s): R06.09 - Other forms of dyspnea
--- NOTE | 2025-07-06 10:05 | CT Report ---
PROCEDURE: CT Angio Abdomen/Pelvis INDICATIONS: rule out active bleed CONTRAST: Omni 300 100mL TECHNIQUE: After the administration of intravenous contrast, images were acquired from the diaphragm to the symphysis. Maximum-intensity projection (MIP) reformats were then acquired. For radiation dose reduction, the following was used: automated exposure control, adjustment of mA and/or kV according to patient size. COMPARISON: None FINDINGS: Image quality: Excellent. VESSELS: Aorta: Patent and normal in caliber. Mesenteric arteries: Celiac trunk, superior and inferior mesenteric arteries appear patent. Right pelvic arteries: Patent and normal in caliber. Left pelvic arteries: Patent and normal in caliber. CHEST: Lung bases and heart: Unremarkable. ABDOMEN: Liver: No solid mass. Gallbladder and biliary tree: No radiopaque stones or wall thickening. No biliary dilation. Spleen: No splenomegaly. Pancreas: No pancreatic ductal dilation. Adrenals: No adrenal nodule. Kidneys and ureters: No hydronephrosis. No renal cystic lesion which requires follow up. No solid mass. Bowel and peritoneum: No bowel distension. No pathologic free fluid. Few diverticula without evidence of acute diverticulitis. Normal appendix. Lymph nodes: No central or retroperitoneal adenopathy. PELVIS Reproductive organs: Unremarkable. Bladder: No abnormal wall thickening, accounting for underdistension. Pelvic lymph nodes: No pelvic adenopathy by size criteria. Bones: No aggressive osseous abnormality. Other: No significant ventral or inguinal hernia. IMPRESSION: No evidence of active GI bleed. No acute findings within the abdomen or pelvis. Reviewed by: Winston Cole MD on 07/06/2025 10:02 AM [facility] Approved by: Winston Cole MD on 07/06/2025 10:02 AM PST Station ID: [id number]
[2025-07-06] MEDS: PANTOPRAZOLE 40 MG VIAL IVP SCH (10:32)
[2025-07-06 13:21] LABS: HCT - HEMATOCRIT 29.8 % (42.0-52.0); HGB - HEMOGLOBIN 8.3 g/dL (14.0-18.0)
[2025-07-06] MEDS: NICOTINE 7 MG PATCH TOP SCH (13:35)
--- NOTE | 2025-07-06 13:37 | Discharge Summary ---
Discharge Summary ALLERGIES Allergies Allergy/AdvReac Type Severity Reaction Status Date / Time No Known Drug Allergies Allergy Verified 07/05/25 11:00 MEDICATIONS Ambulatory Orders Medication Instructions Recorded Confirmed diphenhydramine HCl 25 mg capsule 25 mg PO TID PRN all ergic reaction 04/24/25 07/05/25 (Benadryl) naproxen sodium 220 mg capsule 220 mg PO BID PRN pain 04/24/25 07/05/25 PHYSICAL EXAM AT DISCHARGE Vital Signs: Vital Signs x48h Temp Pulse Resp BP Pulse Ox 07/06/25 12:24 97.7 F 88 18 125/72 100 07/06/25 12:00 97.7 F 89 18 125/72 100 07/06/25 10:25 98.2 F 87 19 135/77 H 96 07/06/25 10:10 98.1 F 87 16 104/73 100 07/06/25 08:00 97.9 F 93 16 135/90 H 100 LABS 07/06/25 13:10 07/06/25 04:44 Discharge Plan Discharge Patient Disposition: 02 Transfer Acute Care Hosp Condition: Fair Prescriptions: No Action diphenhydramine HCl [Benadryl] 25 mg capsule 25 mg PO TID PRN (Reason: allergic reaction) naproxen sodium 220 mg capsule 220 mg PO BID PRN (Reason: pain) Print Language: Kazakh Stand Alone Forms: PCP List Vitals documented within 30 minutes of discharge?: Yes
--- NOTE | 2025-07-06 13:38 | Discharge Summary ---
"Discharge Summary Admit Date: 07/05/25 Discharge Date: 07/06/25 Discharging Provider: Dr. Dmitri Hook Primary Care Provider: None Code Status: Attempt Resuscitation Discharge Facility Name: [facility] [place] DIAGNOSES Admission Diagnoses: BRBPR, Profound Anemia Discharge Diagnoses with Status of Each Condition: Profound Anemia: Pt presented with classic constellation of symptoms for a profound anemia, likely due to ongoing GI bleed. Total of 4 units of LR PRBC given during stay. Hb improved from 5.5 to 8.3. Pt reported subjective improvement starting this AM. BRBPR: Pt relates continued bleeding during defecation and straining, ~5-10mL with BM. CTA obtained ruled out active arterial bleed. Colonoscopy is indicated at this time to determine cause of bleeding. Surgery is on divert until 07/07. Per pt and family request, decision to transfer to facility that can expedite the process. Plan to transfer to [facility] - spoke with GI doctor and hospitalist (Dr. Lion) who are agreeable to transfer. Plan for prep tonight and colonoscopy there in A.M. HPI History of Present Illness: Patient is a 40 year old male with a history of tobacco use, chronic back pain who presents for fatigue, weakness, shortness of breath, and feelings of his heart racing. He has been having intermittent bright red blood in his stool (mixed in with stool, and directly in bowl). Over the last few weeks, this has increased in frequency. It is now happening weekly. This happened once 10 years ago, when he was living in [place], and at that time he had completed a colonoscopy. They had not noted any acute abnormalities, and he was advised to follow-up. He states that his bowel movements have been regular. He goes every day, and they have not changed in quality or quantity, except for the addition of the blood. He is not usually constipated. He does not have a family history of colon cancer. His mother does state that her paternal grandfather had a colostomy, but she is not sure why. No history of inflammatory bowel disease either. No concomitant symptoms including nausea, vomiting, abdominal pain, joint pains. He does have chronic back pain, and was told that he had a pinched nerve. He was prescribed naproxen for allergic reaction, but takes it very sparingly. He does not use any other NSAIDs. He drinks alcohol only on the weekends, about a 12 pack every weekend of beer. Over the last few days, he had progressive shortness of breath, weakness, and feelings of his heart racing as well as palpitations. He does have asthma so he thought it was his asthma acting up. He went to the urgent care, and was advised to come to the emergency room, where he was found to have hemoglobin as low as 4. Pt denies any chest pain, respiratory distress at rest, nausea/vomiting, syncope, NAVA, fever, chills/rigor, dysuria, hematuria. CONSULTS | PROCEDURES Consultations: Mishel Cárdenas Procedures: CTA, transfusion HOSPITAL COURSE Hospital Course: Pt presents with BRBPR ongoing for approx 1 year. Pt denies any melenic quality, and does not know if he has any history of hemorrhoids, anal fissures, polyposis, Crohn's disease, UC, or any other GI disease prior to this. His colonoscopy x10 years ago had been inconclusive for discrete pathology, will ascertain if we can access records from this event. Pt presented with classic constellation of symptoms for a profound anemia, likely due to ongoing GI bleed. In ER, pt was found to have a microcytic, hypochromic, high RDW anemia, with Hgb of 4.4, RBC of 2.68, Hct 18.5. Hgb is now 8.3 after 4 units of LR RBC transfused during the course of treatment. second large bore IV blown during pt movement 07/06; retains patent R AC IV 20ga. Expanded tests were initially ordered for possible cooccurring hemolytic processes, and were negative. Pt reported subjective improvement starting this AM. Calcium and potassium have shown no derangements during treatment course. CTA was obtained with no acute arterial bleed appreciated. Colonoscopy is indicated at this time to determine cause of bleeding. Surgery is on divert until 07/07. Per pt and family request, decision to transfer to facility that can expedite the process. Plan to transfer to [facility] - spoke with GI doctor and hospitalist (Dr. Lion) who are agreeable to transfer. Plan for prep tonight and colonoscopy there in A.M. ALLERGIES Allergies Allergy/AdvReac Type Severity Reaction Status Date / Time No Known Drug Allergies Allergy Verified 07/05/25 11:00 MEDICATIONS Ambulatory Orders Medication Instructions Recorded Confirmed diphenhydramine HCl 25 mg capsule 25 mg PO TID PRN all ergic reaction 04/24/25 07/05/25 (Benadryl) PHYSICAL EXAM AT DISCHARGE Vital Signs: Vital Signs x48h Temp Pulse Resp BP Pulse Ox 07/06/25 12:24 36.5 C 88 18 125/72 100 07/06/25 12:00 36.5 C 89 18 125/72 100 07/06/25 10:25 36.8 C 87 19 135/77 H 96 07/06/25 10:10 36.7 C 87 16 104/73 100 07/06/25 08:00 36.6 C 93 16 135/90 H 100 General Appearance: positive No acute distress and Alert Eyes Bilateral: positive Normal inspection Neck: positive Nml inspection Respiratory: positive Chest non-tender, No respiratory distress and Breath sounds nml Cardiovascular: positive Regular rate & rhythm, No murmur and No gallop Abdomen: positive Non-tender, Nml bowel sounds, No distention and Tenderness Skin: positive Color nml, No rash, Warm and Dry Extremities: positive Non-tender and No pedal edema Neurologic/Psychiatric: positive Oriented x3 LABS 07/06/25 13:10 07/06/25 04:44 DIAGNOSTIC IMAGING Diagnostic Imaging Results: Final report reviewed and Read independently SEPSIS Current Stage of Sepsis: Ruled out FOLLOW UP Follow Up: Transfer to Transfer Hospital. * Hemodynamic Monitoring:Continue close monitoring of vital signs, including blood pressure, heart rate, and orthostatic changes. Promptly address any signs of instability with intravenous crystalloid resuscitation and transfusion as indicated. Target hemoglobin threshold for transfusion is 7 g/dL, or 8 g/dL in patients with active myocardial ischemia. * Laboratory Assessment:Repeat hemoglobin, hematocrit, and coagulation studies at regular intervals to assess ongoing blood loss and response to therapy. * Medication Management:Review and adjust anticoagulant and antiplatelet therapy. Continue low-dose aspirin for secondary cardiovascular prevention; withhold non-aspirin antiplatelet agents for 17 days after cessation of bleeding unless high cardiovascular risk is present. Discontinue NSAIDs and aspirin used for primary prevention. * Diagnostic Evaluation:If not already performed, recommend colonoscopy within 24 hours of admission after adequate bowel preparation and hemodynamic stabilization. If ongoing bleeding or instability precludes colonoscopy, proceed with CT angiography to localize the source, followed by angiographic embolization if indicated. * Second-Look Procedures:Consider repeat colonoscopy during the same admission if initial endoscopy fails to identify the bleeding source or if rebleeding occurs. * Consultations:Ensure involvement of gastroenterology and interventional radiology as appropriate for ongoing or recurrent bleeding, and surgical consultation if minimally invasive interventions fail. * Patient Risk Stratification:Document risk factors for adverse outcomes (e.g., age >60, comorbidities, ongoing hematochezia, renal dysfunction) and communicate these to the receiving facility. * Other Considerations:Maintain NPO status except for clear liquids until definitive endoscopic evaluation is completed. Provide supportive care and address comorbid conditions. TIME SPENT Time Spent in Discharge (Minutes): 35 Discharge Plan Discharge Patient Disposition: 02 Transfer Acute Care Hosp Condition: Fair Prescriptions: Continued diphenhydramine HCl [Benadryl] 25 mg capsule 25 mg PO TID PRN (Reason: allergic reaction) Discontinued naproxen sodium 220 mg capsule 220 mg PO BID PRN (Reason: pain) Health Concerns: You came in for bright red blood in your toilet bowl. I understand this has been going on for a while, but has really worsened in the last few weeks. While you have been here, we have given you 4 units of blood. Your hemoglobin has improved appropriately from 4.4-8.3 overnight. Your heart rate and blood pressure have also responded appropriately. You also got a CT scan of the abdomen and pelvis, which did not reveal any active arterial bleeding. As discussed, the next step will be a colonoscopy. Likely painless bleeding like this comes from outpocketings in your colon called diverticula, some of which were noted on your CAT scan. These often resolve on their own, but direct visualization will be helpful with the colonoscopy in case intervention is needed. This will also help rule out any other reasons for this bleeding including masses or fissures. I understand after discussion with your family, you would prefer to be in the hospital with further specialist care. I can understand your concerns. I have contacted [facility], as requested, but unfortunately they are all full. As such, we will be transferring you to [facility]. The plan is to undergo colonoscopy prep tonight, and receive a colonoscopy in the morning. I spoke with the GI doctor directly, and he is familiar with your case. You will be admitted to a hospitalist named Dr. Lion. We hope you continue to feel better. Thank you for allowing us to take care of you. Print Language: Samoan Stand Alone Forms: PCP List Vitals documented within 30 minutes of discharge?: Yes"
[2025-07-06 16:14] VITALS: BP 140/73; TEMP 97.9; O2SAT 100
[2025-07-08 13:55] LABS: PATHOLOGIST SLIDE COMMENTS SEE SEPARATE REPORT
== END 2025-07-06 16:20 | disposition short-term general hospital (02) ==
LOC: ED 10:26 → MS3 10:26
PROVIDERS: ADMIT Internal Medicine; ATTEND Internal Medicine